=== PATIENT | female | born 1965 | race Caucasian/White ===

== ENCOUNTER → 2017-08-02 | Emergency (ER) | payer OTHER ==
[~2017-08-02] VITALS: Ht 157.5 cm; Wt 124.7 kg
[~2017-08-02] MED LIST: ASPIR 8181 MG; CLONAZEPAM0.125 MG; EFFEXOR XR150 MG; LEVSIN/SL0.125 MG PO; PEPCID AC20 MG PO; ZOCOR40 MG
== END | disposition home or self-care (01) ==
LOC: ER 13:34
DX: R10.11 Right upper quadrant pain (principal)

== ENCOUNTER 2018-02-28 11:41 | Emergency (ER) | payer OTHER ==
[~2018-02-28] VITALS: Ht 157.5 cm; Wt 127.0 kg
[2018-02-28] MEDS ORDERED: CRESTOR40 MG (11:48)
== END 2018-02-28 15:31 | disposition home or self-care (01) ==
LOC: ER 11:41
DX: M54.5 Low back pain (principal); R30.0 Dysuria

== ENCOUNTER 2018-06-19 08:27 | Outpatient (CLI) | payer OTHER ==
[~2018-06-19 08:27] MED LIST changes: +CRESTOR40 MG
== END 2018-06-19 08:30 | disposition home or self-care (01) ==
LOC: SONOGRAMA 08:27 → MAMO-SONO 08:45
DX: M12.9 Arthropathy, unspecified (principal); M19.90 Unspecified osteoarthritis, unspecified site

== ENCOUNTER 2019-05-13 12:55 | Outpatient (CLI) | payer OTHER | END 2019-05-13 13:03 | disposition home or self-care (01) | LOC: MAMO-SONO 12:55 | DX: Z12.31 Encounter for screening mammogram for malignant neoplasm of breast (principal); N60.11 Diffuse cystic mastopathy of right breast; N60.12 Diffuse cystic mastopathy of left breast ==

== ENCOUNTER 2019-12-25 09:55 | Outpatient (CLI) | payer OTHER | END 2019-12-25 10:14 | disposition home or self-care (01) | LOC: RAD 09:55 | PROVIDERS: ATTEND Internal Medicine Cardiovascular Disease | DX: M12.89 Other specific arthropathies, not elsewhere classified, multiple sites (principal) ==

== ENCOUNTER 2020-02-19 16:58 | Emergency (ER) | payer OTHER ==
[~2020-02-19] VITALS: Ht 157.5 cm; Wt 127.0 kg
[2020-02-19] MEDS ORDERED: ATOMOXETINE HCL25 MG PO (17:17)
[2020-02-19] MEDS ORDERED: SERTRALINE HCL50 MG PO (17:18)
[2020-02-19] MEDS ORDERED: BUSPIRONE HCL30 MG PO (17:18)
[2020-02-19] MEDS ORDERED: TEMAZEPAM7.5 M1 PO (17:18)
== END 2020-02-19 22:30 | disposition home or self-care (01) ==
LOC: ER 16:58
DX: I15.8 Other secondary hypertension (principal); F43.0 Acute stress reaction; T43.215A Adverse effect of selective serotonin and norepinephrine reuptake inhibitors, initial encounter; Y92.89 Other specified places as the place of occurrence of the external cause

== ENCOUNTER 2020-02-28 10:35 | Outpatient (CLI) | payer OTHER ==
[~2020-02-28 10:35] MED LIST changes: +ATOMOXETINE HCL25 MG PO; +BUSPIRONE HCL30 MG PO; +SERTRALINE HCL50 MG PO; +TEMAZEPAM7.5 M1 PO
== END 2020-02-28 11:15 | disposition home or self-care (01) ==
LOC: NUCLEAR 10:35
PROVIDERS: ATTEND Internal Medicine Cardiovascular Disease
DX: I87.2 Venous insufficiency (chronic) (peripheral) (principal)

== ENCOUNTER → 2020-03-10 | Outpatient (CLI) | payer OTHER | END | disposition home or self-care (01) | LOC: SONOGRAMA 08-14 09:15 | PROVIDERS: ATTEND Internal Medicine Cardiovascular Disease | DX: M25.511 Pain in right shoulder (principal); M12.011 Chronic postrheumatic arthropathy [Jaccoud], right shoulder ==

== ENCOUNTER → 2020-04-06 | Outpatient (CLI) | payer OTHER | END | disposition home or self-care (01) | LOC: SONOGRAMA 13:51 → MAMO-SONO 14:15 | PROVIDERS: ATTEND Internal Medicine Cardiovascular Disease | DX: S09.8XXA Other specified injuries of head, initial encounter (principal) ==

== ENCOUNTER → 2020-04-06 | Outpatient (CLI) | payer OTHER | END | disposition home or self-care (01) | LOC: MAMO-SONO 03-10 10:30 | PROVIDERS: ATTEND Internal Medicine Cardiovascular Disease | DX: R22.0 Localized swelling, mass and lump, head (principal) ==

== ENCOUNTER → 2021-01-06 | Outpatient (CLI) | payer OTHER | END | disposition home or self-care (01) | LOC: MAMO-SONO 14:32 | PROVIDERS: ATTEND Specialist | DX: N64.89 Other specified disorders of breast (principal); Z12.31 Encounter for screening mammogram for malignant neoplasm of breast; N60.11 Diffuse cystic mastopathy of right breast; N60.12 Diffuse cystic mastopathy of left breast ==

== ENCOUNTER 2022-12-29 08:57 | Outpatient (CLI) | payer OTHER | END 2022-12-29 09:02 | disposition home or self-care (01) | LOC: SONOGRAMA 08:57 | PROVIDERS: ATTEND Physical Medicine & Rehabilitation | DX: S96.911A Strain of unspecified muscle and tendon at ankle and foot level, right foot, initial encounter (principal) ==

== ENCOUNTER → 2023-04-01 | Emergency (ER) | payer OTHER ==
[~2023-04-01] VITALS: Ht 157.5 cm; Wt 113.4 kg
[~2023-04-01] MED LIST changes: +TRILEPTAL150 MG
== END | disposition home or self-care (01) ==
LOC: ER 13:40
DX: S80.02XA Contusion of left knee, initial encounter (principal); S80.01XA Contusion of right knee, initial encounter; S70.12XA Contusion of left thigh, initial encounter; W18.39XA Other fall on same level, initial encounter; Y93.89 Activity, other specified; Y92.89 Other specified places as the place of occurrence of the external cause; Y99.9 Unspecified external cause status

== ENCOUNTER 2025-04-01 07:45 | Outpatient (CLI) | payer OTHER | END 2025-04-01 07:53 | disposition home or self-care (01) | LOC: RAD 07:45 | PROVIDERS: ATTEND General Practice | DX: S43.402A Unspecified sprain of left shoulder joint, initial encounter (principal); M54.16 Radiculopathy, lumbar region; M54.50 Low back pain, unspecified ==